=== PATIENT | female | born 1945 | race Caucasian/White ===

== ENCOUNTER → 2019-06-28 11:35 | Outpatient (BNVA) | payer MEDICARE, OTHER, SELFPAY | PROVIDERS: Family Provider Family Medicine; Visit Provider Obstetrics & Gynecology | DX: N76.0 Acute vaginitis (principal); B96.89 Other specified bacterial agents as the cause of diseases classified elsewhere | CPT/HCPCS: 87210 ==

== ENCOUNTER 2020-01-28 10:58 | Outpatient (CLI) | payer MEDICARE, OTHER, SELFPAY ==
--- NOTE | 2020-01-28 11:03 | MM_ITS ---
WS: [id number] BILATERAL DIGITAL SCREENING MAMMOGRAPHY WITH CAD CLINICAL INFORMATION: SCREENING HISTORY: Screening mammogram. No current complaints. COMPARISON: TECHNIQUE: Bilateral CC and MLO views. FINDINGS: The breasts are composed of heterogeneous fibroglandular density tissue, which can limit the detectio n of small underlying mass lesions. No suspicious mass, asymmetry, calcifications, or architectural d istortion. No evidence of malignancy. Lucent centered calcifications. MM/[id number] IMPRESSION: BI-RADS: 2-Benign FOLLOW UP: 1 Year Follow-up Recommend return to annual screening mammography.
== END 2020-01-28 10:59 | disposition home or self-care (01) ==
LOC: RADSHAW 11:02
PROVIDERS: PCP Family Medicine; Visit Provider Obstetrics & Gynecology
DX: Z12.31 Encounter for screening mammogram for malignant neoplasm of breast (principal)
CPT/HCPCS: 77067

== ENCOUNTER → 2020-04-27 15:22 | Outpatient (BNVA) | payer MEDICARE, OTHER, SELFPAY | PROVIDERS: PCP Family Medicine; Visit Provider Podiatrist Foot & Ankle Surgery | DX: M79.671 Pain in right foot (principal); M20.11 Hallux valgus (acquired), right foot; M12.9 Arthropathy, unspecified | CPT/HCPCS: 73630 ==

== ENCOUNTER 2021-02-03 09:08 | Outpatient (CLI) | payer MEDICARE, OTHER, SELFPAY ==
--- NOTE | 2021-02-03 09:15 | MM_ITS ---
WS: [id number] BILATERAL DIGITAL SCREENING MAMMOGRAPHY WITH CAD CLINICAL INFORMATION: SCREENING HISTORY: Screening mammogram. No current complaints. COMPARISON: January 28, 2020 TECHNIQUE: Bilateral CC and MLO views. FINDINGS: Scattered fibroglandular densities bilaterally. Punctate and lucent centered calcifications. No suspi cious focal mass, asymmetry, calcifications, or architectural distortion. No evidence of malignancy. MM/[place] [id number] IMPRESSION: BI-RADS: 2-Benign FOLLOW UP: 1 Year Follow-up Recommend return to annual screening mammography.
== END 2021-02-03 09:09 | disposition home or self-care (01) ==
LOC: RADSHAW 09:12
PROVIDERS: PCP Family Medicine; Visit Provider Obstetrics & Gynecology
DX: Z12.31 Encounter for screening mammogram for malignant neoplasm of breast (principal)
CPT/HCPCS: 77067

== ENCOUNTER 2022-02-16 12:53 | Outpatient (CLI) | payer MEDICARE, OTHER, SELFPAY ==
--- NOTE | 2022-02-16 13:01 | MM_ITS ---
WS: [id number] BILATERAL 3D TOMOSYNTHESIS DIGITAL SCREENING MAMMOGRAPHY WITH CAD CLINICAL INFORMATION: SCREEN HISTORY: Screening mammogram. No current complaints. COMPARISON: February 03, 2021 TECHNIQUE: Bilateral CC and MLO views. FINDINGS: Scattered fibroglandular densities bilaterally. Incidental punctate and secretory calcifications. No suspicious focal mass, asymmetry, calcifications, or architectural distortion. No evidence of maligna ncy. Biopsy clip upper outer RIGHT breast. MM/[id number] IMPRESSION: BI-RADS: 2-Benign FOLLOW UP: 1 Year Follow-up Recommend return to annual screening mammography.
== END 2022-02-16 12:54 | disposition home or self-care (01) ==
LOC: RAD 12:54
PROVIDERS: PCP Family Medicine; Visit Provider Obstetrics & Gynecology
DX: Z12.31 Encounter for screening mammogram for malignant neoplasm of breast (principal)
CPT/HCPCS: 77063; 77067

== ENCOUNTER 2022-08-09 09:03 | Outpatient (CLI) | payer MEDICARE, OTHER, SELFPAY ==
[2022-08-09 09:14] VITALS: BMI 21.2
--- NOTE | 2022-08-09 10:15 | NMCV_ITS ---
NM esteban perf SPECT r/s* [id number] Meme Nazario Age: 77 Gender: F : 1945 Exam Date: 08/09/2022 10:15 Ordering Phys: Kevin Mims Technologist: XAVIER Coffman Exam Location: [facility] Indications: SHORTNESS OF BREATH STRESS TEST Please [facility] IMAGE PROTOCOL Rest/Stress 1 Lexiscan Day Radiopharmaceutical Dose (mCi) Administration Site Administered by Rest: Tc-99m 10.7 IV XAVIER Dunaway Sestamibi Stress:Tc-99m 32.3 IV XAVIRE Dunaway Sestamibi Rest: 09-Aug-2022 60 Discovery 630 Stress: 09-Aug-2022 30 Discovery 630 0.4mg Lexiscan. Images obtained in supine and prone position. SPECT RESULTS Technical Quality: Excellent Raw Data Analysis: Normal Image Corrections: No attenuation or motion correction applied Summed Stress Score: 0 Summed Rest Score: 7 Summed Difference Score: 0 PERFUSION FINDINGS Patchy areas of slightly decreased tracer uptake were noted around the apical region. No significant reversibility was noted FUNCTIONAL RESULTS (calculated via Gated SPECT) Stress Image LV EF (%): 70 Stress EDV (mL):50 TID: 0.8 Stress ESV (mL):15 FUNCTIONAL FINDINGS: Segmental wall motion analysis revealing no gross wall motion abnormalities IMPRESSIONS 1. Myocardial perfusion imaging revealing patchy areas of slightly decreased persistent tracer uptake in the apical region, most likely represent attenuation artifacts. 2. Normal LV ejection fraction of 70%. 3. LV wall motion analysis revealing no gross wall motion abnormalities. 4. Normal LV volume Low probability for coronary ischemia, based on the above findings Dr Ellis Smith MD FACC (Electronically Signed) Final Date: 09 August 2022 18:35 S
--- NOTE | 2022-08-09 10:15 | ECG_ITS ---
[facility] Test Date: 2022-08-09 Pat Name: Meme Nazario Department: Room: Gender: Female Sales Management Trainee: : 1945 Requested By: Kevin Mims Order Number: [id number] Karine MD: Ellis Smith M.D. Interpretive Statements NAME OF STUDY: LEXISCAN SESTAMIBI STRESS TEST INDICATION: Exertional dyspnea, PROCEDURE: At the baseline, the EKG revealed normal sinus rhythm with normal ST Ts. The baseline heart was 65 bpm with a blood pressue of 151/83 mm of Hg Lexiscan was infused over a period of 20 seconds. A total of 0.4 milligrams of Lexiscan was infused. The stress phase was continued for a total of 5 minutes. Heart rate at the end of the stress phase was 89 bpm with a blood pressure 138/89 mm of Hg. The EKG at the peak infusion revealed no significant changes. Sestamibi was injected 20 seconds after the Lexiscan infusion. Heart rate at the end of the recovery phase was 87 bpm with a blood pressure of 151/84 mm of Hg. CONCLUSION: 1. No significant EKG changes with the LexiScan infusion 2. No LexiScan induced chest pain or cardiac arrhythmia 3. Normal blood pressure and heart rate response 4. Sestamibi/sestamibi perfusion scan pending; see separate report. Electronically Signed On 08-10-2022 0:28:10 SHEETER WAXER OPERATOR by Ellis Smith M.D. [id number]
[2022-08-09] MEDS: regadenoson 0.4 Mg/5 ml Syringe IVP (10:57)
[2022-08-09 11:09] VITALS: BP 151/84; PULSE 92
== END 2022-08-09 09:04 | disposition home or self-care (01) ==
LOC: CDL 09:07
PROVIDERS: Family Provider Internal Medicine; PCP Family Medicine; Visit Provider Family Medicine
DX: R06.09 Other forms of dyspnea (principal); R06.02 Shortness of breath
CPT/HCPCS: 36415; 78452; 93017; 96374; A9500; J2785

== ENCOUNTER → 2022-09-27 12:41 | Outpatient (BNVA) | payer MEDICARE, OTHER, SELFPAY | PROVIDERS: Family Provider Internal Medicine; PCP Family Medicine; Visit Provider Internal Medicine | DX: I47.1 Supraventricular tachycardia (principal); R06.09 Other forms of dyspnea; R00.2 Palpitations | CPT/HCPCS: 93246; 99204 ==

== ENCOUNTER 2022-10-25 14:40 | Outpatient (CLI) | payer MEDICARE, OTHER, SELFPAY ==
--- NOTE | 2022-10-25 15:00 | USCV_ITS ---
Meme Nazario Age: 77 Gender: F : 1945 Exam Date: 10/25/2022 15:12 Ordering Phys: Michael Vela M.D ([email or web address]) Technologist: Malik Correa Exam Location: [facility] [place] Indication: chest pain, sob BP: 130 / 80 HR: 62 Rhythm: Sinus Technical Quality: Adequate MEASUREMENTS (Male / Female) Normal Values 2D ECHO LVOT Diameter 2.0 cm LV Ejection Fraction MOD 2C 70.3 % LV Ejection Fraction 2C AL 70.1 % LA Diameter 3.0 cm LA Width 2.6 cm LA Height 3.0 cm RA Width 2.9 cm RA Height 3.8 cm Aorta at Sinotubular Diameter 3.0 cm IVC Diameter 1.6 cm M-MODE Aortic Annulus Diameter 2.5 cm LA Ao Ratio MM 1.2 MV E Point Septal Separation 0.9 cm DOPPLER AV Peak Velocity 98.3 cm/s LVOT Peak Velocity 73.7 cm/s AV Area Cont Eq vti 2.9 cm squared AV Area Cont Eq pk 2.5 cm squared MV Peak Velocity 89.0 cm/s MV Area PHT 5.0 cm squared Mitral E to A Ratio 0.6 MV E' Velocity 29.0 cm/s Mitral E to MV E' Ratio 7.4 Mitral E to LV E' Lateral Ratio 7.0 Mitral E to LV E' Septal Ratio 7.9 TR Peak Velocity 226.6 cm/s TR Peak Gradient 20.5 mmHg TR Mean Velocity 184.8 cm/s TR Mean Gradient 14.0 mmHg TR Velocity Time Integral 71.5 cm Right Atrial Pressure 3.0 mmHg Pulmonary Artery Systolic Pressu 23.5 mmHg PV Peak Velocity 70.0 cm/s RV Acceleration Time 0.1 s RV Ejection Time 0.2 s RV AcT/ET 0.4 FINDINGS Left Ventricle Left ventricle is normal in size. LV systolic function is normal with EF of 55-60%. No regional wall motion abnormalities are seen. Grade 1 diastolic dysfunction Right Ventricle Normal in size and function Right Atrium Normal in size Left Atrium Normal in size Mitral Valve Structurally normal mitral valve. Trace mitral regurgitation. Aortic Valve Grossly normal. No significant stenosis or regurgitation. Tricuspid Valve Mild tricuspid regurgitation. Pulmonic Valve Not well visualized Pericardium Normal Aorta Normal in size IVC Appears to be normal CONCLUSIONS LV systolic function is normal with EF of 55-60% Grade 1 diastolic dysfunction Trace mitral regurgitation Mild tricuspid regurgitation. No comparison studies are available. Michael Vela MD (Electronically Signed) Final Date: 04 November 2022 16:05 S
== END 2022-10-25 14:41 | disposition home or self-care (01) ==
LOC: RAD 14:41
PROVIDERS: Family Provider Internal Medicine; PCP Family Medicine; Visit Provider Internal Medicine
DX: R07.9 Chest pain, unspecified (principal); R06.02 Shortness of breath
CPT/HCPCS: 93306

== ENCOUNTER → 2022-11-08 12:22 | Outpatient (BNVA) | payer MEDICARE, OTHER, SELFPAY | PROVIDERS: Family Provider Internal Medicine; PCP Family Medicine; Visit Provider Internal Medicine | DX: I47.1 Supraventricular tachycardia (principal); R06.09 Other forms of dyspnea; I49.3 Ventricular premature depolarization | CPT/HCPCS: 99214 ==

== ENCOUNTER 2023-02-28 12:59 | Outpatient (CLI) | payer MEDICARE, OTHER, SELFPAY ==
--- NOTE | 2023-02-28 13:13 | MM_ITS ---
WS: [id number] BILATERAL 3D TOMOSYNTHESIS DIGITAL SCREENING MAMMOGRAPHY WITH CAD CLINICAL INFORMATION: SCREENING HISTORY: Screening mammogram. No current complaints. COMPARISON: 2021 TECHNIQUE: Bilateral CC and MLO views. FINDINGS: Scattered fibroglandular densities bilaterally. Dense nodular subareolar breast tissue bilaterally si milar to previous. No suspicious focal mass, asymmetry, calcifications, or architectural distortion. No evidence of malignancy. Incidental punctate and secretory calcifications. Biopsy clip upper outer RIGHT breast. IMPRESSION: MM/[place] [id number] BI-RADS: 2-Benign FOLLOW UP: 1 Year Follow-up Recommend return to annual screening mammography.
== END 2023-02-28 13:00 | disposition home or self-care (01) ==
PROVIDERS: PCP Family Medicine; Visit Provider Nurse Practitioner Women's Health
DX: Z12.31 Encounter for screening mammogram for malignant neoplasm of breast (principal)
CPT/HCPCS: 77063; 77067

== ENCOUNTER 2023-06-13 09:13 | Observation (INO) | payer MEDICARE, OTHER, SELFPAY ==
--- NOTE | 2023-06-08 11:20 | ANES.PREANE2 ---
Pre-Anesthetic Assessment Height/Weight: Height 1.6 m Operation Date: 06/13/23 07:00 Proposed Procedures p Posterior colporrhaphy 13266,N81.6(Not Applicable) - Cb Mercado MD Familial anesthetic complications: PEG containing medications, can cause joint pain and malaise. Was Beta Gia taken within 24 hours: N/A Was Clonidine taken within 24 hours: N/A Social No alcohol and No tobacco Exam alert, oriented x 3, clear to auscultation bilaterally and regular rate & rhythm Airway Submandibular: within normal limits Cervical ROM: within normal limits Mallampati: Class II Dentition: full CV/HEM Anemia and Arrythmia (SVT) Metabolic Thyroid Disease Anesthetic Plan ASA status: 2 Anesthesia: General Medications/Allergies Home Medications Medication Instructions Recorded Confirmed Last Taken Type levothyroxine 25 mcg capsule 25 mcg PO QDAY 06/28/19 06/08/23 Unknown History vitamin B complex (B 2 tab PO QDAY 06/28/19 06/08/23 Unknown History Complex-Vitamin B12 tablet) tumeric 100 mg-ender 150 mg-olive 1 cap PO DAILY 01/28/21 06/08/23 Unknown History 50 mg-oreg 150 mg-caprylate capsule diclofenac sodium 1 % topical gel 2 g topical QID 04/13/22 06/08/23 Unknown History (Voltaren Arthritis Pain) ferrous sulfate 325 mg (65 mg 325 mg PO EVERY OTHER DAY 09/27/22 06/08/23 Unknown History iron) tablet estradiol 0.5 mg tablet 0.5 mg PO QDAY #90 tabs 04/06/23 06/08/23 Unknown Rx Vitamin D3 25 mcg PO 1XD 06/08/23 06/08/23 Unknown History Allergies Allergy/AdvReac Type Severity Reaction Status Date / Time bisacodyl [From PEG-Prep] Allergy Intermediate joint pain Verified 05/26/23 07:53 and rash polyethylene glycol 3350 Allergy Intermediate joint pain Verified 05/26/23 07:53 [From PEG-Prep] and rash potassium chloride Allergy Intermediate joint pain Verified 05/26/23 07:53 [From PEG-Prep] and rash sodium bicarbonate Allergy Intermediate joint pain Verified 05/26/23 07:53 [From PEG-Prep] and rash sodium chloride Allergy Intermediate joint pain Verified 05/26/23 07:53 [From PEG-Prep] and rash acetaminophen Allergy rash Verified 05/26/23 07:53 [From Capital with Codeine] adhesive tape Allergy rash Verified 05/26/23 07:53 azithromycin [From Zithromax] Allergy rash Verified 05/26/23 07:53 bacitracin Allergy Unknown Verified 05/26/23 07:53 cephalexin Allergy ALGY-Rash Verified 06/08/23 10:19 ciprofloxacin Allergy rash Verified 05/26/23 07:53 clindamycin Allergy Unknown Verified 05/26/23 07:53 codeine Allergy rash Verified 05/26/23 07:53 [From Capital with Codeine] meperidine [From Demerol] Allergy hallucinati Verified 05/26/23 07:53 ons Penicillins Allergy rash Verified 05/26/23 07:53 prednisone Allergy rash Verified 05/26/23 07:53 [facility] Anesthesia Medical History Menopause Has been on HRT (estradiol) for years. Patient wishes to remain on it. Hypothyroidism On medication Hypertension Diagnosed in 2005 and treated with medication. Off medication since 2011. Surgical History S/P cholecystectomy (~08/1992) S/P total abdominal hysterectomy and bilateral salpingo-oophorectomy (~12/1975) with appendectomy. Diag: Endometriosis. 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 States 2/3 of the right lung removed. Age 16. H/O umbilical hernia repair S/P breast biopsy, left benign per patient Family History Mother Hypertension Heart disease Thyroid disease Family/Other Breast cancer maternal aunt Colon cancer maternal aunt Grandmother Uterine cancer maternal Data Anesthesia Cardiac Studies: Echocardiogram 10/25/22 Sestamibi Stress Test (Cardiology) 08/09/22 Holter Monitor 09/27/22
[2023-06-13] VITALS (15 sets, daily range): BP systolic 120–162; BP diastolic 73–111; PULSE 78–91; RESP 12–18; TEMP 36.2–36.6; O2SAT 96–100; BMI 20.2
[2023-06-13] MEDS: sodium chloride 0.9% 1,000 ML 30 ML IV (06:23)
[2023-06-13] MEDS: enoxaparin 30 mg/0.3 mL Syringe SUBCUT (06:23)
--- NOTE | 2023-06-13 07:03 | W.PM.OPSUD ---
Surgery/Procedure H&P Update DATE OF PROCEDURE: June 13, 2023 DATE H&P PERFORMED: 05/26/23 H&P UPDATE INFORMATION: I have reviewed H&P completed within last 30 days, I have examined patient prior to procedure and No changes to prior documentation PREOP DIAGNOSIS: Rectocele stage III PLANNED PROCEDURE: Operation Date: 06/13/23 07:00 Proposed Procedures p Posterior colporrhaphy 68172,N81.6(Not Applicable) - Cb Mercado MD
[2023-06-13] MEDS: doxycycline 100 MG in sodium chloride 0.9% (plus) 100 ML IV (07:16)
[2023-06-13] MEDS: lidocaine-epi 2% 20 mL INJ 10 ML INJECTION (07:35)
[2023-06-13] MEDS: estrogens Conjugated Cream 30 gm 1 APPLIC VAGINAL (08:00)
--- NOTE | 2023-06-13 08:05 | P.ANESUD_ITS ---
Pre-Anesthetic Update Pre-Anesthetic Assessment: Date of Surgery/Procedure: 06/13/23 Preop Roseanne gnosis: Rectocele stage III Proposed Procedure: Operation Date: 06/13/23 07:00 Proposed Procedures p Posterior colporrhaphy 41919,N81.6(Not Applicable) - Cb Mercado MD Any changes to Pre-Anesthetic Assessment?: No Last Intake: Intake Last Liquid Date 06/12/23 Last Liquid Time 20:00 Last Solid Date 06/12/23 Last Solid Time 20:00 Vitals: Temperature 97.5 F L 06/13/23 06:10 Temperature Source Temporal Artery S can 06/13/23 06:10 Pulse Rate 82 06/13/23 06:10 Respiratory Rate 16 06/13/23 06:10 Blood Pressure 132/90 06/13/23 06:25 Blood Pressure Queenie n 104 06/13/23 06:25 Pulse Oximetry 98 06/13/23 06:10 Oxygen Delivery Me thod Room Air 06/13/23 06:10 Exam: Pre-Anes Outpt Exam: alert and oriented x 3 Cardiac Studies: Echocardiogram 10/25/22 Sestamibi Stress Test (Cardiology) 08/09 Holter Monitor 09/27/22
--- NOTE | 2023-06-13 08:49 | PM.OP ---
Operative Report Date of procedure: June 13, 2023 Pre-op diagnosis: Rectocele stage III Post-op diagnosis: same Post-op diagnosis: Same Procedure done: Posterior colporrhaphy Specimens removed/disposition: None Surgeon: Cb Mercado MD Estimated blood loss (mL): 25 IV fluids (mL): 800 Urine output (mL): 50 Procedure: After obtaining informed consent, the patient was taken to the operating room and placed in the supine position, given general anesthesia, and prepped and draped in sterile fashion. The abdomen, vulva and vagina were prepped and draped in a sterile manner. A time out procedure was performed. The vaginal mucosa was then injected in the midline with 2% lidocaine with epinephrine. The vaginal mucosa was scored. An incision was made across the introitus. Metzenbaum scissors were used to tunnel beneath posterior vaginal mucosa until the apex of the rectocele bulge was reached. At this point, the rectum was from the posterior vaginal mucosa using sharp and blunt dissection, and the rectal bulge imbricated in the midline with interrupted sutures of 2-0 vicryl suture. Levator ani muscles on either side were approximated in the midline with interrupted 0 Vicryl sutures. Excess posterior vaginal mucosa was excised, and the vaginal episiotomy was repaired by approximating the posterior vaginal mucosa with a suture of Vicryl 2-0. Excellent hemostasis was obtained. A vaginal pack is placed overnight as postoperative support for the vaginal tissues after closure of vaginal incisions. Sponge, lap, needle, and instrument counts were correct times three. The patient was taken to the recovery room, awake and in stable condition.
[2023-06-13] MEDS: estradiol 1 mg Tablet 0.5 MG PO (10:10)
[2023-06-13] MEDS: dextrose 5%-lactated ringers 1,000 ML 125 ML IV ×2 (10:10→18:09)
[2023-06-13] MEDS: ketorolac 30 mg/mL INJ IVP ×3 (10:11→21:48)
[2023-06-13] MEDS: levothyroxine 25 mcg Tablet PO (10:11)
--- NOTE | 2023-06-13 16:55 | ANE.PACU2 ---
Inpatient post-anesthesia follow up: Airway intact: Yes Vital signs: Temperature 97.8 F Pulse Rate 81 Respiratory Rate 17 Blood Pressure 120/73 Pulse Oximetry 97 Oxygen Delivery Me thod Room Air Oxygen Flow Rate 6 Fraction of Inspir ed Oxygen Hydration adequate: Yes Nausea and vomiting: No Pain level: 2 Mental status: Baseline
[2023-06-13] MEDS: simethicone 80 mg Chew PO (21:49)
[2023-06-14 04:56] VITALS: BP 141/80; PULSE 95; RESP 15; TEMP 36.6; O2SAT 96
--- NOTE | 2023-06-14 05:09 | PC.NURSE ---
Vaginal packing removed at 0500. Pt tolerated well. Small amount of blood noted on packing.
[2023-06-14 05:14] LABS: Hematocrit 35.4 % (36-47); Mean Corpuscular HGB Conc 32.2 g/dL (30-55); Mean Corpuscular Hemoglobin 29.6 pg (27-33); Mean Corpuscular Volume 91.9 fl (85-98); Mean Platelet Volume 9.9 fL (7.4-10.4); Platelet Count 180 10^3/cmm (157-399); Red Blood Count 3.85 10^6/uL (3.85-5.65); White Blood Count 11.23 10^3/uL (3.29-11.43)
[2023-06-14 09:05] VITALS: BP 147/84; PULSE 88; RESP 14; TEMP 36.7
[2023-06-14 09:07] VITALS: BP 147/84; PULSE 88; RESP 14; TEMP 36.7
--- NOTE | 2023-06-14 09:48 | P.DS_ITS ---
Discharge Providers GRANITE FABRICATOR Date of Admission: 06/13/23 09:13 Date of Discharge: 06/14/23 Attending Provider at Admission: Cb Mercado MD Attending Provider at Discharge: Cb Mercado MD Primary Care Provider: Kevin Mims Reason for Visit Reason for Visit: 52306 N81.6 Hospital Course Hospital Course Mrs. Nazario 78-year-old female with a history of rectocele stage III. Admitted for planned posterior colporrhaphy. The procedure was performed without complication. Overnight observation was uneventful. Tolerating diet well. The patient was counseled regarding soft mechanical diet and to avoid food items that could cause constipation. Ambulating without difficulty. She was also counseled regarding pelvic rest for 6 weeks (no sex, no tampons, no vaginal douches). Return to the emergency room if any fever, increased bleeding or pain and weight lifting limitations to 10 pounds for the next 6 weeks. Due to her extensive allergy history she does refers that she can take Tylenol from [facility] pharmacy without problems and declined narcotics prescription for postoperative pain management. Physical Exam Narrative: GA: Alert and oriented ?3. HEENT: WNL. Heart: Regular rate and rhythm. Lungs: Clear to auscultation bilaterally. Abdomen: Bowel sounds present, nontender. GAMBLING DEALER: Spotting bleeding. Extremities: No edema, no cyanosis, no calves pain. Urinary Catheter Management: Beatty: Cath Placed During This Visit: yes, but has since been removed by the nurse Reason for Continuing Indwelling Catheter: Decision to DC Catheter Urinary Catheter Date of Insertion: 06/13/23 Urinary Catheter Time of Insertion: 07:40 Date Urinary Catheter Removed: 06/14/23 Time Urinary Catheter Discontinued: 05:09 History History History 2 Term 2 0 Miscarriages/Ectopic 0 Living Children 2 Discharge Data Studies Completed and Pending Laboratory Results WBC 11.23 10^3/uL (3.29-11.43) 06/14/23 05:00 RBC 3.85 10^6/uL (3.85-5.65) 06/14/23 05:00 Hgb 11.40 g/dL (11.27-16.99) 06/14/23 05:00 Hct 35.4 % (36-47) L 06/14/23 05:00 MCV 91.9 fl (85-98) 06/14/23 05:00 MCH 29.6 pg (27-33) 06/14/23 05:00 MCHC 32.2 g/dL (30-55) 06/14/23 05:00 RDW 13.0 % (12.1-15.1) 06/14/23 05:00 Plt Count 180 10^3/cmm (157-399) 06/14/23 05:00 MPV 9.9 fL (7.4-10.4) 06/14/23 05:00 Blood Type A Positive 06/13/23 06:16 Rho(D) Type Rh positive 06/13/23 06:16 Antibody Screen Negative 06/13/23 06:16 Vitals Last Vital Signs Temp 98.1 F 06/14/23 09:07 Pulse 88 06/14/23 09:07 Resp 14 06/14/23 09:07 BP 147/84 06/14/23 09:07 Pulse Ox 96 06/14/23 04:56 O2 Del Method Room Air 06/14/23 04:56 O2 Flow Rate 6 06/13/23 09:02 Results Labs OB ([facility]): Blood Type A Positive 06/13/23 Antibody Screen Negative 06/13/23 Hct 35.4 % (36-47) L 06/14/23 Hgb 11.40 g/dL (11.27-16.99) 06/14/23 Rho(D) Type Rh positive 06/13/23 Plt Count 180 10^3/cmm (157-399) 06/14/23 Discharge Plan Discharge Patient Disposition: Home Condition: Stable Prescriptions: New acetaminophen 325 mg capsule 325 mg PO Q4H PRN (Reason: fever or pain) Qty: 60 0RF ibuprofen 800 mg tablet 800 mg PO TID PRN (Reason: pain) Qty: 60 0RF Continued nwjsapj-giqg-dqavr-oreg-capryl 100 mg-150 mg- 50 mg-150 mg capsule 1 cap PO DAILY levothyroxine 25 mcg capsule 25 mcg PO QDAY vitamin B complex [B Complex-Vitamin B12] Tablet 2 tab PO QDAY diclofenac sodium [Voltaren Arthritis Pain] 1 % gel 2 g topical QID Rx Instructions: apply to single elbow, wrist or hand; for hand includes palm/fingers/back of hand estradiol 0.5 mg tablet 0.5 mg PO QDAY Qty: 90 3RF ferrous sulfate 325 mg (65 mg iron) tablet 325 mg PO EVERY OTHER DAY Rx Instructions: Take one tab 3 times a week. Vitamin D3 25 mcg capsule 25 mcg PO 1XD Discharge Orders: Discharge Order (Routine); Ordered 06/14/23 Ordered By: Cb Mercado Referrals: Cb Mercado MD [Physician] - 06/27/23 10:00 am (Patient scheduled for two week follow up appointment with [facility] on at 10:00 AM. Patient scheduled for six week follow up appointment with [facility] on July 24 at 10:45 AM) Discharge Diet: Soft Mechanical Discharge Activity: Limit activity as instructed Patient Instructions: Posterior Vaginal Repair (GEN), OB Discharge Report, OB Food/Drug Interaction Guide, Opioid Safety Activity Restrictions/Additional Instructions: 1. Please call [facility] clinic on next working day to make your post-operative appointment in 2 weeks. 2. Please stay home until you come back to the clinic on first post- hospatilization check up. 3. Please follow instructions on your medications CAREFULLY. 4. If you have abdominal incision, do not cover it unless dressing is necessary because of drainage. OK to shower, but avoid bath. Leave steri-strips until they fall off. If they are still on one week after surgery, you may remove them. 5. If you had vaginal surgery or vaginal repair, Dr. Mercado may instruct you to take SITZ bath. 6. Yellow, blood tinged odorous vaginal discharge is usually normal after hysterectomy or vaginal surgeries. 7. No SEXUAL INTERCOURSE, tampons, or douches until you are completely released from the post-operative care. 8. Avoid constipation by eating right and maybe using some Metamucil or Milk of Magnesia. 9. All prescription refills are given during the working hours. Please do no wait till it runs out. Call the clinic at [phone] before your medication runs out. The clinic will get in touch with your doctor to prescribe medications if necessary. 10. Please remain within 40 mile radius from our hospital because emergencies do happen now and then during the post-operative period. 11. If you have stairs at home, take one step at a time slowly and minimize the number of trips. It helps to stay in one floor for the next few days. No lifting except what you can lift by one hand until you are released from the post-operative care. 12. Driving is discouraged until you are well healed. It may be 3-4 weeks before you feel strong enough to drive. You should be able to turn and look through the rear window without pain and you should be able to push the brake pedal very hard without pain before you drive. No fast rules, but SAFETY should be your primary concern. DO NOT drive if you are on sedating medications such as narcotics. 13. Call the clinic (during working hours) to make urgent appointment or go to the Emergency room, if any of the following occurs: i. Vaginal bleeding becomes heavy, more than a period. ii. Incision becomes red and sore, or drains pus. iii. Your TEMPERATURE is over 100.4F or you have chill. iv. IV site becomes red and swollen (a little ``knot?? is usually OK) v. Persistent nausea and vomiting vi. Persistent constipation or diarrhea vii. Rash or allergic reaction to medications. Discharge Attestations GRANITE FABRICATOR Time Spent in Discharge Care*: greater than 30 min Coding Level of Care Code Acute Code for Chg Fwd
[2023-06-14 10:22] VITALS: BP 147/84; PULSE 88; RESP 14; TEMP 36.7
== END 2023-06-14 10:20 | disposition home or self-care (01) ==
LOC: OBGYN 09:14
PROVIDERS: Admitting Provider Obstetrics & Gynecology; PCP Family Medicine; Visit Provider Obstetrics & Gynecology
PROC: (CPT 57250; principal; 2023-06-13 07:00)
DX: N81.6 Rectocele (principal); E03.9 Hypothyroidism, unspecified; I10 Essential (primary) hypertension
CPT/HCPCS: 57250; 36415; 85027; 86850; 86900; A4216; G0378; J1100; J1200; J1650; J1885; J2371; J2405; J2704; J3010; J3490; J7030; J7121; J8499

== ENCOUNTER 2023-08-24 09:53 | Outpatient (RCR) | payer MEDICARE, OTHER, SELFPAY | END 2023-09-03 23:59 | disposition home or self-care (01) | LOC: SST 09:53 | PROVIDERS: PCP Family Medicine; Visit Provider Family Medicine | DX: R13.10 Dysphagia, unspecified (principal) | CPT/HCPCS: 92507; 92524; 92526; 92610 ==

== ENCOUNTER → 2023-08-29 09:41 | Outpatient (BNVA) | payer MEDICARE, OTHER, SELFPAY | PROVIDERS: PCP Family Medicine; Visit Provider Otolaryngology | DX: R49.0 Dysphonia (principal); J38.7 Other diseases of larynx; R13.13 Dysphagia, pharyngeal phase | CPT/HCPCS: 31575; 99204 ==

== ENCOUNTER 2023-09-04 06:00 | Outpatient (RCR) | payer MEDICARE, OTHER, SELFPAY | END 2023-09-28 23:59 | disposition home or self-care (01) | LOC: SST 06:00 | PROVIDERS: PCP Family Medicine; Visit Provider Family Medicine | DX: R13.10 Dysphagia, unspecified (principal); R47.1 Dysarthria and anarthria | CPT/HCPCS: 92526 ==

== ENCOUNTER 2023-09-19 09:20 | Outpatient (CLI) | payer MEDICARE, OTHER, SELFPAY ==
--- NOTE | 2023-09-19 10:00 | FL_ITS ---
WS: [id number] Exam: FL barium swallow modifd [id number] Date/Time of Exam: 09/19/2023 9:39 AM Reason For Exam: Fluoroscopy time: 2min [id number] minutes # of spot films: 0 Modified barium swallow was performed in conjunction with the speech therapy service. Oropharyngeal phase of swallowing was normal. The patient experienced very minimal penetration into t he laryngeal inlet when swallowing thin liquid barium. The patient tolerated the remaining barium mix ture foodstuffs without aspiration or penetration. The patient swallowed a barium tablet without diff iculty or complication. IMPRESSION: 1. Mild penetration observed when the patient ingested thin liquid barium. No aspiration was noted. A separate report with recommendations will follow from the speech therapy service.
== END 2023-09-19 09:21 | disposition home or self-care (01) ==
LOC: RAD 09:20
PROVIDERS: PCP Family Medicine; Visit Provider Otolaryngology
DX: R49.0 Dysphonia (principal)
CPT/HCPCS: 74230; 92611

== ENCOUNTER → 2023-10-05 14:26 | Outpatient (BNVA) | payer MEDICARE, OTHER, SELFPAY | PROVIDERS: PCP Family Medicine; Visit Provider Otolaryngology | DX: R49.0 Dysphonia (principal); J38.7 Other diseases of larynx; R13.13 Dysphagia, pharyngeal phase | CPT/HCPCS: 99213; 99214 ==

== ENCOUNTER → 2023-11-07 12:33 | Outpatient (BNVA) | payer MEDICARE, OTHER, SELFPAY | PROVIDERS: PCP Family Medicine; Visit Provider Internal Medicine | DX: I47.10 Supraventricular tachycardia, unspecified (principal); R06.09 Other forms of dyspnea | CPT/HCPCS: 99213 ==